=== PATIENT | male | born 1985 | race Caucasian/White ===

== ENCOUNTER 2022-05-05 15:23 | Emergency (ER) | payer OTHER ==
[~2022-05-05] VITALS: Ht 167.6 cm; Wt 100.0 kg
[2022-05-05 15:41] VITALS: BP 148/97
[2022-05-05] MEDS ORDERED: HYDROCODONE/ACETAMINOPHEN 5/325MG TABLET PO ONE (18:00)
[2022-05-05] MEDS ORDERED: HYDR-4001 MT (19:38)
[2022-05-05] MEDS ORDERED: IBUP-2029 MT (19:38)
== END 2022-05-05 20:17 | disposition home or self-care (01) ==
LOC: ER 15:23
DX: S52.121A Displaced fracture of head of right radius, initial encounter for closed fracture (principal); V03.90XA Pedestrian on foot injured in collision with car, pick-up truck or van, unspecified whether traffic or nontraffic accident, initial encounter; Y93.89 Activity, other specified; Y92.89 Other specified places as the place of occurrence of the external cause; Y99.8 Other external cause status
CPT/HCPCS: 29105; 70486; 71045; 73030; 73080; 73610; 76512; 99284; A4565